=== PATIENT | female | born 1980 | race Caucasian/White ===

== ENCOUNTER 2017-09-04 03:15 | Emergency (ER) | payer OTHER ==
[2017-09-04 03:24] VITALS: BP 155/64; PULSE 100; O2SAT 98
[2017-09-04] MEDS ORDERED: Adacel Vial IM ONE ×2 (03:36→03:43)
[2017-09-04] MEDS ORDERED: BACIGUENT PACKET TP ONE (03:36)
[2017-09-04] MEDS ORDERED: KEFLEX 500 MG PO ONE (03:38)
[2017-09-04] MEDS ORDERED: XYLOCAINE 1% HCL 20 ML MDV IJ ONE (03:38)
[2017-09-04] MEDS ORDERED: BACIGUENT PACKET ONE (03:43)
[2017-09-04] MEDS ORDERED: KEFLEX 500 MG ONE (03:43)
[2017-09-04] MEDS ORDERED: XYLOCAINE 1% HCL 20 ML MDV ONE (03:43)
--- NOTE | 2017-09-04 03:45 | ERPHSYRPT ---
- History of Present Illness Time Seen by Provider: 09/04/17 03:27 Source: patient Exam Limitations: no limitations Patient Subjective Stated Complaint: fishing hook to left hand 5th digit Triage Nursing Assessment: fishing hook to left hand 5th digit Physician History: ABOUT 30 MINUTES AGO AT HOME PT GOT A FISH HOOK EMBEDDED IN THE DISTAL PHALAN[place] OF HER LEFT HAND; DENIES PRIOR INJURY TO THE LEFT SMALL FINGER; DENIES NUMBNESS OF THE LEFT SMALL FINGER. Allergies/Adverse Reactions: No Known Drug Allergies Allergy (Verified 01/17/16 20:57) Home Medications: Alprazolam [Xanax] 2 mg PO QIDPRN PRN 02/16/15 [History] Fluoxetine HCl [Prozac] 60 mg PO DAILY 02/16/15 [History] Hydrocodone Bit/Acetaminophen [Hydrocodon-Acetaminophn 10-325] 1 tab PO QIDPRN PRN 02/16/15 [History] Omeprazole 20 MG [Prilosec 20 mg] 20 mg PO DAILY 02/16/15 [History] Albuterol Sulfate [Proventil Hfa] 6.7 gm IH BID 01/17/16 [History] Hx Tetanus, Diphtheria Vaccination/Date Given: No (> 17 yrs) Hx Influenza Vaccination/Date Given: No Hx Pneumococcal Vaccination/Date Given: No Immunizations Up to Date: Yes - Review of Systems Musculoskeletal: Other (FISH HOOK EMBEDDED IN LEFT SMALL FINGER TONIGHT) - Past Medical History Pertinent Past Medical History: Yes Neurological History: No Pertinent History ENT History: No Pertinent History Cardiac History: No Pertinent History Respiratory History: Bronchitis Endocrine Medical History: No Pertinent History Musculoskeletal History: No Pertinent History GI Medical History: GERD History: No Pertinent History Psycho-Social History: Anxiety, Depression Female Reproductive Disorders: No Pertinent History Other Medical History: REMISSION W/ HODGKINS LYMPHOMA 2 YEARS AGO; HAS A PORT - Past Surgical History Past Surgical History: Yes Neuro Surgical History: No Pertinent History Cardiac: No Pertinent History Respiratory: No Pertinent History Gastrointestinal: Appendectomy Genitourinary: No Pertinent History Musculoskeletal: No Pertinent History Female Surgical History: Tubal Ligation Other Surgical History: PORT-A-CATH, skin biopsy, knee sx - Social History Smoking Status: Current every day smoker How long have you smoked: 15 years Exposure to second hand smoke: No Alcohol Use: Socially Drug Use: none Patient Lives Alone: No Significant Family History: no pertinent family hx - Female History Hx Last Menstrual Period: 07/22/2017 Hx Now: No - Nursing Vital Signs Nursing Vital Signs: Initial Vital Signs Temperature 97.8 F 09/04/17 03:18 Pulse Rate 100 H 09/04/17 03:18 Respiratory Rate 18 09/04/17 03:18 Blood Pressure 155/64 09/04/17 03:18 O2 Sat by Pulse Oximetry 98 09/04/17 03:18 Pain Scale Pain Intensity 8 - Physical Exam General Appearance: alert Shoulder Exam: normal ROM Elbow/Forearm Exam: normal ROM Wrist Exam: normal ROM Hand Exam: soft tissue tenderness (FISH HOOK EMBEDDED IN PAD OF LEFT SMALL FINGER) Neuro/Tendon Exam: normal sensation Mental Status Exam: alert, cooperative SpO2 Interpretation: normal SpO2: 98 Oxygen Delivery: Room Air - Course Nursing assessment & vital signs reviewed: Yes Ordered Tests: Active Orders 24 hr Category Date Time Status Wound Care STAT Care 09/04/17 03:36 Active Medication Summary Discontinued Medications Generic Name Dose Route Start Last Admin Trade Name Freq PRN Reason Stop Dose Admin Bacitracin 0.9 gm 09/04/17 03:36 09/04/17 03:58 Baciguent Packet TP 09/04/17 03:37 1 gm STAT ONE Administration Bacitracin Confirm 09/04/17 03:43 Baciguent Packet Administered 09/04/17 03:44 Dose 1 gm .ROUTE .STK-MED ONE Cephalexin HCl 500 mg 09/04/17 03:38 09/04/17 03:58 Keflex 500 Mg PO 09/04/17 03:39 500 mg STAT ONE Administration Cephalexin HCl Confirm 09/04/17 03:43 Keflex 500 Mg Administered 09/04/17 03:44 Dose 500 mg .ROUTE .STK-MED ONE Diphtheria/Tetanus/Acell Pertussis 0.5 ml 09/04/17 03:36 09/04/17 03:58 Adacel Vial IM 09/04/17 03:37 0.5 ml .ONCE ONE Administration Diphtheria/Tetanus/Acell Pertussis Confirm 09/04/17 03:43 Adacel Vial Administered 09/04/17 03:44 Dose 0.5 ml IM .STK-MED ONE Lidocaine HCl 5 ml 09/04/17 03:38 09/04/17 03:56 Xylocaine 1% Hcl 20 Ml Mdv IJ 09/04/17 03:39 5 ml STAT ONE Administration Lidocaine HCl Confirm 09/04/17 03:43 Xylocaine 1% Hcl 20 Ml Mdv Administered 09/04/17 03:44 Dose 1 ml .ROUTE .STK-MED ONE - Progress Progress Note: 09/04/17 04:07 FISH HOOK IN LEFT SMALL FINGER: 1% LIDOCAINE, ALCOHOL WIPE X2, FISH HOOK REMOVED WITH PLIERS AND A STERILE #18 GA NEEDLE. - Departure Time of Disposition: 04:11 Departure Disposition: Home Clinical Impression: FISH HOOK REMOVAL FROM LEFT SMALL FINGER Condition: Stable Critical Care Time: No Referrals: KAJAL SHANNON [Primary Care Provider] - Instructions: Removal of Foreign Body From Skin Additional Instructions: FOLLOW UP WITH PRIVATE DOCTOR TOMORROW. NEOSPORIN & BANDAGE DAILY TO LEFT SMALL FINGER WOUND FOR 7 DAYS. KEEP CLEAN & DRY.
== END 2017-09-04 04:24 | disposition home or self-care (01) ==
LOC: ED 03:15
DX: S61.237A Puncture wound without foreign body of left little finger without damage to nail, initial encounter (principal)
CPT/HCPCS: 90471; 90715; 96372; 99283; A9270-GY

== ENCOUNTER 2019-09-20 19:09 | Emergency (ER) | payer OTHER ==
[2019-09-20 20:27] LABS: Appearance CLEAR (CLEAR); Bilirubin NEGATIVE (NEGATIVE); Blood NEGATIVE Ery/ul (0-5); Epithelial Cells RARE /HPF (FEW); Glucose NEGATIVE (NEGATIVE); Ketones NEGATIVE (NEGATIVE); Leukocyte Esterase NEGATIVE (NEGATIVE); Mucus SLIGHT /HPF (NEGATIVE); Nitrite NEGATIVE (NEGATIVE); Protein,Urine Dip NEGATIVE (Negative); Specific Gravity 1.003 (1.005-1.025); Urobilinogen NEGATIVE mg/dL (0-1)
[2019-09-20 20:47] LABS: Absolute Neutrophil Ct (ANC) 4.87 (1.4-6.9); BASOPHIL % 0.5 % (0.0-0.4); Basophil (Absolute #) 0.05 (0-0.4); Eosinophil % 3.7 % (0.00-5.0); Eosinophil (Absolute #) 0.34 (0-0.5); Hematocrit 39.4 % (35-47); Hemoglobin 13.6 gm/dl (12.0-16.0); Lymphocyte (Absolute #) 2.99 (1.0-4.6); Lymphocytes % 32.4 % (24.0-44.0); Mean Cell Volume 93.8 fl (78-100); Mean Corpuscular Hemoglobin 32.4 pg (26-32); Mean Corpuscular Hgb Concent. 34.5 g/dl (32-36); Mean Platelet Volume 9.6 fl (6-9.5); Monocyte (Absolute #) 0.97 (0.0-1.3); Monocytes % 10.5 % (0.0-12.0); Neutrophil % 52.9 % (36.0-66.0); Platelet Count 353 K/mm3 (150-450); Red Cell Distribution Width 13.9 % (11.5-14.0); White Blood Count 9.2 K/mm3 (4.0-10.5)
[2019-09-20 21:25] LABS: ALBUMIN 4.3 g/dL (3.5-5.0); ANION GAP 12.8 MEQ/L (5-15); BILIRUBIN,TOTAL 0.5 mg/dL (0.2-1.3); Calcium 9.2 mg/dL (8.4-10.2); Creatinine 1 1.23 mg/dL (0.52-1.04); Potassium 3.5 mmol/L (3.5-5.1); TSH, 3RD Generation 1.09 mIU/L (0.47-4.68)
[2019-09-20 21:35] LABS: Barbiturate,Urine NEGATIVE (NEGATIVE); Benzodiazepine,Urine NEGATIVE (NEGATIVE); Cocaine,Urine NEGATIVE (NEGATIVE); Methadone,Urine NEGATIVE (NEGATIVE); Opiate,Urine NEGATIVE (NEGATIVE); PCP,Urine NEGATIVE (NEGATIVE); THC,Urine NEGATIVE (NEGATIVE)
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
[2019-09-20 22:19] LABS: Amphetamine,Urine POSITIVE (NEGATIVE)
[2019-09-21] MEDS ORDERED: DUONEB 0.5-3 MG/3 ml Neb IH ONE ×2 (06:31→06:55)
[2019-09-21 10:19] VITALS: O2SAT 100
[2019-09-21 11:27] VITALS: BP 124/82; PULSE 90
== END 2019-09-21 11:34 | disposition home or self-care (01) ==
LOC: ED 19:09
DX: F19.20 Other psychoactive substance dependence, uncomplicated (principal); F31.9 Bipolar disorder, unspecified; R44.3 Hallucinations, unspecified
CPT/HCPCS: 36415; 80053; 80307; 81001; 84443; 85025; 90791; 94640; 99284; G0480; Q3014; A9270-GY

== ENCOUNTER 2019-10-02 02:05 | Emergency (ER) | payer OTHER ==
--- NOTE | 2019-10-02 02:17 | ERPHSYRPT ---
- History of Present Illness Time Seen by Provider: 10/02/19 02:16 Historian: patient Physician History: Pt is here with right flank pain and not able to have a BM for 3 days. Pt notes that she did an enema and has been "shitting water." Pt didn't have diarrhea prior to taking the enema. Pt states that she thinks that she has something like a urinary tract infection. Pt did try an enema and Ibuprofen 400 mgs around 22:00. Timing/Duration: today Activities at Onset: none Quality: aching, sharpness Allergies/Adverse Reactions: No Known Drug Allergies Allergy (Verified 10/02/19 02:25) Hx Tetanus, Diphtheria Vaccination/Date Given: Yes (08/2017) Hx Influenza Vaccination/Date Given: No Hx Pneumococcal Vaccination/Date Given: No - Review of Systems Constitutional: Malaise Eyes: No Symptoms Ears, Nose, & Throat: No Symptoms Respiratory: No Symptoms Cardiac: No Symptoms Abdominal/Gastrointestinal: Abdominal Pain, Diarrhea, Constipation Genitourinary Symptoms: Flank Pain Musculoskeletal: Back Pain Skin: No Symptoms Neurological: No Symptoms Psychological: No Symptoms, Other (restless) Endocrine: No Symptoms Hematologic/Lymphatic: No Easy Bruising All Other Systems: Reviewed and Negative - Past Medical History Pertinent Past Medical History: Yes Neurological History: No Pertinent History ENT History: No Pertinent History Cardiac History: No Pertinent History Respiratory History: Bronchitis Endocrine Medical History: No Pertinent History Musculoskeletal History: No Pertinent History GI Medical History: GERD History: No Pertinent History Psycho-Social History: Anxiety, Bipolar, Depression Female Reproductive Disorders: No Pertinent History Other Medical History: REMISSION W/ HODGKINS LYMPHOMA - Past Surgical History Past Surgical History: Yes Neuro Surgical History: No Pertinent History Cardiac: No Pertinent History Respiratory: No Pertinent History Gastrointestinal: Appendectomy Genitourinary: No Pertinent History Musculoskeletal: No Pertinent History Female Surgical History: Tubal Ligation Other Surgical History: PORT-A-CATH, skin biopsy, knee sx - Social History Smoking Status: Current every day smoker How long have you smoked: 20 years Exposure to second hand smoke: Yes Alcohol Use: Socially Drug Use: methamphetamines Patient Lives Alone: No Significant Family History: no pertinent family hx - Nursing Vital Signs Nursing Vital Signs: Initial Vital Signs Temperature 98.7 F 10/02/19 02:12 Pulse Rate 95 H 10/02/19 02:12 Respiratory Rate 10/02/19 02:12 Blood Pressure 102/76 10/02/19 02:12 O2 Sat by Pulse Oximetry 97 10/02/19 02:12 Pain Scale Pain Intensity 10 - Physical Exam General Appearance: moderate distress, anxiety, other (moderate pain) Eye Exam: PERRL/EOMI, No scleral icterus, No photophobia, No EOM palsy/ anisocoria Ears, Nose, Throat Exam: normal ENT inspection, No dry mucous membranes Neck Exam: normal inspection, non-tender, supple Respiratory Exam: normal breath sounds, lungs clear, airway intact, No chest tenderness Cardiovascular Exam: regular rate/rhythm, normal heart sounds, No murmur Gastrointestinal/Abdomen Exam: soft, normal bowel sounds, tenderness, guarding, No distention, No mass Pelvic Exam: not done Rectal Exam: not done Back Exam: normal inspection Extremity Exam: normal inspection, normal range of motion Neurologic Exam: alert, oriented x 3, cooperative, ambulance paramedic II-XII nml as tested, nml cerebellar function, No motor deficits, No sensory deficit, No motor weakness, No facial droop Skin Exam: normal color, warm, dry, No rash SpO2 Interpretation: normal SpO2: 97 O2 Delivery: Room Air Ordered Tests: Active Orders 24 hr Category Date Time Status IV Insertion STAT Care 10/02/19 03:25 Active ABDOMEN AND PELVIS W/0 CONTRAS [CT] Stat Exams 10/02/19 02:25 Taken AMYLASE Stat Lab 10/02/19 02:41 Completed CBC W DIFF Stat Lab 10/02/19 02:41 Completed CMP Stat Lab 10/02/19 02:41 Completed CULTURE,URINE Stat Lab 10/02/19 02:41 Received HCG,QUALITATIVE URINE Stat Lab 10/02/19 02:41 Completed LIPASE Stat Lab 10/02/19 02:41 Completed Lactic Acid Stat Lab 10/02/19 02:35 Completed UA W/RFX UR CULTURE Stat Lab 10/02/19 02:41 Completed Urine Triage Profile Stat Lab 10/02/19 03:00 Completed Medication Summary Discontinued Medications Generic Name Dose Route Start Last Admin Trade Name Freq PRN Reason Stop Dose Admin Ceftriaxone Sodium/Dextrose 1 g in 50 mls @ 100 mls/hr 10/02/19 03:41 03:50 Rocephin 1 Gm-D5w 50 Ml Bag IV 10/02/19 04:10 100 mls/hr STAT STA 100 mls/hr Administration Ceftriaxone Sodium/Dextrose Confirm 10/02/19 03:47 Rocephin 1 Gm-D5w 50 Ml Bag Administered 10/02/19 03:48 Dose 1 g in 50 mls @ ud IV .STK-MED ONE Ketorolac Tromethamine 30 mg 10/02/19 03:22 10/02/19 03:33 Toradol 30 Mg Injection IV 10/02/19 03:23 30 mg STAT ONE Administration Ketorolac Tromethamine Confirm 10/02/19 03:26 Toradol 30 Mg Injection Administered 10/02/19 03:27 Dose 30 mg .ROUTE .STK-MED ONE Lab/Rad Data: Laboratory Result Diagrams 10/02/19 02:41 10/02/19 02:41 Laboratory Results 10/02/19 10/02/19 10/02/19 Range/Units 03:00 02:41 02:41 WBC (4.0-10.5) K/mm3 RBC (4.1-5.4) M/mm3 Hgb (12.0-16.0) gm/dl Hct (35-47) % MCV (78-100) fl MCH (26-32) pg MCHC (32-36) g/dl RDW (11.5-14.0) % Plt Count (150-450) K/mm3 MPV (6-9.5) fl Gran % (36.0-66.0) % Eos # (Auto) (0-0.5) Absolute Lymphs (auto) (1.0-4.6) Absolute Monos (auto) (0.0-1.3) Lymphocytes % (24.0-44.0) % Monocytes % (0.0-12.0) % Eosinophils % (0.00-5.0) % Basophils % (0.0-0.4) % Absolute Granulocytes (1.4-6.9) Basophils # (0-0.4) Sodium (137-145) mmol/L Potassium (3.5-5.1) mmol/L Chloride (98-107) mmol/L Carbon Dioxide (22-30) mmol/L Anion Gap (5-15) MEQ/L BUN (7-17) mg/dL Creatinine (0.52-1.04) mg/dL Estimated GFR ML/MIN Glucose (74-106) mg/dL Lactic Acid (0.4-2.0) Calcium (8.4-10.2) mg/dL Total Bilirubin (0.2-1.3) mg/dL AST (14-36) U/L ALT (0-35) U/L Alkaline Phosphatase (38-126) U/L Serum Total Protein (6.3-8.2) g/dL Albumin (3.5-5.0) g/dL Amylase (30-110) U/L Lipase (23-300) U/L Urine Color YELLOW (YELLOW) Urine Appearance TURBID (CLEAR) Urine pH 6.0 (5-6) Ur Specific [place] 1.013 (1.005-1.025) Urine Protein 100 (Negative) Urine Ketones NEGATIVE (NEGATIVE) Urine Blood SMALL (0-5) [place]/ul Urine Nitrite POSITIVE (NEGATIVE) Urine Bilirubin NEGATIVE (NEGATIVE) Urine Urobilinogen NEGATIVE (0-1) mg/dL Ur Leukocyte Esterase LARGE (NEGATIVE) Urine WBC (Auto) >100 (0-5) /HPF Urine RBC (Auto) 26-50 (0-2) /HPF U Epithel Cells (Auto) RARE (FEW) /HPF Urine Bacteria (Auto) FEW (NEGATIVE) /HPF U Non-Squamous Epi Cells RARE (FEW) /HPF Urine Mucus (Auto) SLIGHT (NEGATIVE) /HPF Urine Culture Reflexed YES (NO) Urine Glucose NEGATIVE (NEGATIVE) mg/dL Urine HCG, Qual NEGATIVE (Negative) Urine Opiates Level NEGATIVE (NEGATIVE) Ur Methadone NEGATIVE (NEGATIVE) Urine Barbiturates NEGATIVE (NEGATIVE) Ur Phencyclidine (PCP) NEGATIVE (NEGATIVE) Urine Amphetamine POSITIVE (NEGATIVE) U Benzodiazepine Level POSITIVE (NEGATIVE) Urine Cocaine NEGATIVE (NEGATIVE) Urine Marijuana (THC) POSITIVE (NEGATIVE) 10/02/19 10/02/19 10/02/19 Range/Units 02:41 02:41 02:35 WBC 18.5 H (4.0-10.5) K/mm3 RBC 4.37 (4.1-5.4) M/mm3 Hgb 14.1 (12.0-16.0) gm/dl Hct 41.0 (35-47) % MCV 93.8 (78-100) fl MCH 32.3 H (26-32) pg MCHC 34.4 (32-36) g/dl RDW 13.8 (11.5-14.0) % Plt Count 368 (150-450) K/mm3 MPV 9.7 H (6-9.5) fl Gran % 81.9 H (36.0-66.0) % Eos # (Auto) 0.13 (0-0.5) Absolute Lymphs (auto) 1.72 (1.0-4.6) Absolute Monos (auto) 1.49 H (0.0-1.3) Lymphocytes % 9.3 L (24.0-44.0) % Monocytes % 8.0 (0.0-12.0) % Eosinophils % 0.7 (0.00-5.0) % Basophils % 0.1 (0.0-0.4) % Absolute Granulocytes 15.16 H (1.4-6.9) Basophils # 0.02 (0-0.4) Sodium 136 L (137-145) mmol/L Potassium 4.0 (3.5-5.1) mmol/L Chloride 96 L (98-107) mmol/L Carbon Dioxide 31 H (22-30) mmol/L Anion Gap 12.8 (5-15) MEQ/L BUN 10 (7-17) mg/dL Creatinine 0.88 (0.52-1.04) mg/dL Estimated GFR > 60.0 ML/MIN Glucose 115 H (74-106) mg/dL Lactic Acid 0.9 (0.4-2.0) Calcium 9.5 (8.4-10.2) mg/dL Total Bilirubin 1.50 H (0.2-1.3) mg/dL AST 48 H (14-36) U/L ALT 91 H (0-35) U/L Alkaline Phosphatase 65 (38-126) U/L Serum Total Protein 8.3 H (6.3-8.2) g/dL Albumin 4.5 (3.5-5.0) g/dL Amylase 53 (30-110) U/L Lipase 37 (23-300) U/L Urine Color (YELLOW) Urine Appearance (CLEAR) Urine pH (5-6) Ur Specific [place] (1.005-1.025) Urine Protein (Negative) Urine Ketones (NEGATIVE) Urine Blood (0-5) [place]/ul Urine Nitrite (NEGATIVE) Urine Bilirubin (NEGATIVE) Urine Urobilinogen (0-1) mg/dL Ur Leukocyte Esterase (NEGATIVE) Urine WBC (Auto) (0-5) /HPF Urine RBC (Auto) (0-2) /HPF U Epithel Cells (Auto) (FEW) /HPF Urine Bacteria (Auto) (NEGATIVE) /HPF U Non-Squamous Epi Cells (FEW) /HPF Urine Mucus (Auto) (NEGATIVE) /HPF Urine Culture Reflexed (NO) Urine Glucose (NEGATIVE) mg/dL Urine HCG, Qual (Negative) Urine Opiates Level (NEGATIVE) Ur Methadone (NEGATIVE) Urine Barbiturates (NEGATIVE) Ur Phencyclidine (PCP) (NEGATIVE) Urine Amphetamine (NEGATIVE) U Benzodiazepine Level (NEGATIVE) Urine Cocaine (NEGATIVE) Urine Marijuana (THC) (NEGATIVE) - Progress Progress: improved (PAIN LESS AFTER TORADOL) Progress Note: 10/02/19 04:17 Pt notes that her pain is improved after she had some toradol. Pt given Rocephin due to the UTI and elevated WBC's.CT aND OTHR LABS REVIWED AND UNREMARKABLE. WILL DISCHARGE PT ON CIPRO AND HAVE HER F/U AN OUTPT AT THE COMPLETION OF HER ANTIBIOTIC. - Departure Departure Disposition: Home Clinical Impression: Urinary tract infection Condition: Stable Critical Care Time: No Referrals: DOCTOR,NO FAMILY [NON-STAFF PHY W/O PRIVILEGES] - Additional Instructions: Drink plenty of non-caffienated beverages. Wipe front to back after toileting. Be sure to get up and urinate after intercourse, especially any oral intercourse. Avoid bubble baths. YOu will need to take your antibiotic and then have your urine rechecked at the completion of your antibiotic to be susre that the infection has cleared. Prescriptions: Ciprofloxacin [Cipro 500 MG] 500 mg PO BID #14 tablet
[2019-10-02 02:25] VITALS: O2SAT 97
[2019-10-02 02:50] LABS: Appearance TURBID (CLEAR); Bacteria FEW /HPF (NEGATIVE); Bilirubin NEGATIVE (NEGATIVE); Blood SMALL Ery/ul (0-5); Epithelial Cells RARE /HPF (FEW); Glucose NEGATIVE (NEGATIVE); Ketones NEGATIVE (NEGATIVE); Leukocyte Esterase LARGE (NEGATIVE); Mucus SLIGHT /HPF (NEGATIVE); Nitrite POSITIVE (NEGATIVE); Non-Squamous Epithelial Cells RARE /HPF (FEW); Protein,Urine Dip 100 (Negative); RBC 26-50 /HPF (0-2); Specific Gravity 1.013 (1.005-1.025); Urobilinogen NEGATIVE mg/dL (0-1); WBC >100 /HPF (0-5)
[2019-10-02 02:55] LABS: Absolute Neutrophil Ct (ANC) 15.16 (1.4-6.9); BASOPHIL % 0.1 % (0.0-0.4); Basophil (Absolute #) 0.02 (0-0.4); Eosinophil % 0.7 % (0.00-5.0); Eosinophil (Absolute #) 0.13 (0-0.5); Hemoglobin 14.1 gm/dl (12.0-16.0); Lymphocyte (Absolute #) 1.72 (1.0-4.6); Lymphocytes % 9.3 % (24.0-44.0); Mean Cell Volume 93.8 fl (78-100); Mean Corpuscular Hemoglobin 32.3 pg (26-32); Mean Corpuscular Hgb Concent. 34.4 g/dl (32-36); Mean Platelet Volume 9.7 fl (6-9.5); Monocyte (Absolute #) 1.49 (0.0-1.3); Neutrophil % 81.9 % (36.0-66.0); Platelet Count 368 K/mm3 (150-450); Red Blood Count 4.37 M/mm3 (4.1-5.4); Red Cell Distribution Width 13.8 % (11.5-14.0); White Blood Count 18.5 K/mm3 (4.0-10.5)
[2019-10-02 02:56] LABS: ALBUMIN 4.5 g/dL (3.5-5.0); ALKALINE PHOSPHATASE 65 U/L (38-126); AMYLASE 53 U/L (30-110); ANION GAP 12.8 MEQ/L (5-15); BLOOD UREA NITROGEN 10 mg/dL (7-17); CHLORIDE 96 mmol/L (98-107); Calcium 9.5 mg/dL (8.4-10.2); Carbon Dioxide 31 mmol/L (22-30); Creatinine 1 0.88 mg/dL (0.52-1.04); Glucose 115 mg/dL (74-106); LIPASE 37 U/L (23-300); SGOT/AST 48 U/L (14-36); SGPT/ALT 91 U/L (0-35); SODIUM 136 mmol/L (137-145); Total Protein 8.3 g/dL (6.3-8.2)
[2019-10-02] MEDS ORDERED: TORAdol 30 mg Injection IV ONE (03:22)
[2019-10-02] MEDS ORDERED: TORAdol 30 mg Injection ONE (03:26)
[2019-10-02] MEDS ORDERED: ROCEPHIN 1 Gm-D5w 50 ml Bag** 1 G/50 ML IVPB IV STA (03:41)
[2019-10-02 03:47] LABS: Barbiturate,Urine NEGATIVE (NEGATIVE); Benzodiazepine,Urine POSITIVE (NEGATIVE); Cocaine,Urine NEGATIVE (NEGATIVE); Methadone,Urine NEGATIVE (NEGATIVE); Opiate,Urine NEGATIVE (NEGATIVE); PCP,Urine NEGATIVE (NEGATIVE); THC,Urine POSITIVE (NEGATIVE)
[2019-10-02] MEDS ORDERED: ROCEPHIN 1 Gm-D5w 50 ml Bag** 1 G/50 ML IVPB IV ONE (03:47)
[2019-10-02 04:04] LABS: Amphetamine,Urine POSITIVE (NEGATIVE)
[2019-10-02 04:20] VITALS: BP 109/69; PULSE 97
--- NOTE | 2019-10-02 09:16 | XRAY ---
Indication: Right flank pain. Constipation and difficulty urinating. Multiple contiguous axial images obtained through the abdomen and pelvis without contrast using renal stone protocol. Comparison: None Lung bases are clear. Heart is not enlarged. No renal calculus or evidence for obstructive uropathy in either system. Noncontrasted stomach and bowel loops appear nonobstructed. Appendix not clearly identified. The colon demonstrates mild fluid distention throughout including rectum favoring diarrhea. No free fluid/air. 2.6 cm right ovary cyst. A few hepatic calcified granulomas. Remaining liver, gallbladder, pancreas, spleen, adrenal glands, kidneys, ureters, bladder, uterus, and aorta appear unremarkable for noncontrast exam. Osseous structures intact remotes appearing L2 wedging deformity. Impression: 1. Negative renal calculus or evidence for obstructive uropathy. 2. Mild fluid distended colon favoring diarrhea. 3. 2.6 cm mid right ovary cyst, remote L2 wedging deformity, and evidence for old granulomatous disease. 4. Remaining CT abdomen/pelvis without contrast exam is negative. Comment: Preliminary interpretation was made by [facility]. No critical discrepancy. CTDI 5.66
== END 2019-10-02 04:31 | disposition home or self-care (01) ==
LOC: ED 02:05
DX: N39.0 Urinary tract infection, site not specified (principal); R10.9 Unspecified abdominal pain; R53.81 Other malaise; R19.7 Diarrhea, unspecified; K59.00 Constipation, unspecified; M54.9 Dorsalgia, unspecified
CPT/HCPCS: 36000; 36415; 74176; 80053; 80307; 81001; 82150; 83605; 83690; 84703; 85025; 87077; 87086; 87186; 96365; 96374; 99284; J0696; J1885

== ENCOUNTER 2025-07-02 17:45 | Observation (INO) | payer OTHER ==
[2025-07-02] MEDS ORDERED: BABY ASPIRIN 81 MG CHEW ONE (18:55)
[2025-07-02] MEDS ORDERED: Zofran 4 MG/2 ML VIAL ONE (18:55)
[2025-07-02] MEDS ORDERED: TORAdol 30 mg Injection ONE (18:56)
[2025-07-02 18:59] LABS: Hematocrit 40.8 % (34.1-44.9); Hemoglobin 14.7 g/dL (11.2-15.7); Mean Corpuscular Hemoglobin 32.2 pg (25.6-32.2); Mean Corpuscular Hgb Concent. 36.0 g/dL (32.2-35.5); Platelet Count 424 x10^3/uL (182-369); Red Blood Count 4.56 x10^6/uL (3.93-5.22); White Blood Count 12.7 x10^3/uL (3.98-10.04)
[2025-07-02] MEDS: TORAdol 30 mg Injection IV ONE (18:59)
[2025-07-02 19:00] LABS: BASOPHIL % 0.5 % (0.1-1.2); Basophil (Absolute #) 0.07 x10^3/uL (0.01-0.08); Eosinophil (Absolute #) 0.26 x10^3/uL (0.04-0.36); IMMATURE GRAN # 0.05 x10^3u/L (0.001-0.031); IMMATURE GRAN % 0.4 % (0.001-0.429); Lymphocyte (Absolute #) 2.71 x10^3/uL (1.18-3.74); Monocyte (Absolute #) 1.07 x10^3/uL (0.24-0.86); NUCLEATED RBC # 0.00 x10^3u/L (0.00-0.012); NUCLEATED RBC % 0.0 % (0.00-0.2)
[2025-07-02] MEDS: Zofran 4 MG/2 ML VIAL IV ONE (19:00)
[2025-07-02] MEDS: BABY ASPIRIN 81 MG CHEW PO ONE (19:01)
--- NOTE | 2025-07-02 19:01 | ERPHSYRPT ---
- History of Present Illness Source: patient Exam Limitations: no limitations Patient Subjective Stated Complaint: pt c/o of upper medial epigastric pain w/N&V Triage Nursing Assessment: Pt brought self to the ER, hypertensive, rates pain as 7/10, pulses normal, skin n/w/d, N&V, "feels like something is stuck", still has gallbladder, no hx of hiatal hernia, no difficulty breathing, doesn't appear to be in any distress Hx Tetanus, Diphtheria Vaccination/Date Given: Yes (08/2017) Hx Influenza Vaccination/Date Given: No Hx Pneumococcal Vaccination/Date Given: No <CYRIL ADAMSON - Last Filed: 07/02/25 19:03> <EVELINA KEMP - Last Filed: 07/02/25 22:38> - History of Present Illness Time Seen by Provider: 07/02/25 18:37 Physician History: Patient is here with 7 out of 10 midepigastric pain that radiates into her chest. No falls or trauma. Patient states that has been going on all day. Patient states that she still has her gallbladder. No cardiac history. Patient does smoke. Patient states she has also had diarrhea over the same timeframe. She otherwise has been in her normal state of health. She has no fever here. Patient is taking PO well. Same number of urinations and defecations. The patient has no signs of altered mental status, nuchal rigidity, signs of meningitis. The patient is up-to-date on all vaccinations. (CYRIL ADAMSON) Allergies/Adverse Reactions: No Known Drug Allergies Allergy (Verified 07/02/25 18:07) Home Medications: Albuterol Sulfate [Albuterol Sulfate Hfa] 2 inh PO Q6HPRN PRN 07/02/25 [History] Travel Risk - International Travel Have you traveled outside of the country in past 3 weeks: No - Emerging Infectious Disease Are you exhibiting symptoms associated with any current EIDs: Yes Symptoms: Abdominal Pain, Vomitting <CYRIL ADAMSON - Last Filed: 07/02/25 19:03> - Past Medical History Pertinent Past Medical History: Yes Neurological History: No Pertinent History ENT History: No Pertinent History Cardiac History: No Pertinent History Respiratory History: Bronchitis Endocrine Medical History: No Pertinent History Musculoskeletal History: Arthritis GI Medical History: GERD History: No Pertinent History Psycho-Social History: Anxiety, Bipolar, Depression Female Reproductive Disorders: No Pertinent History Other Medical History: Hodgkins Lymphoma 5 years ago - Past Surgical History Past Surgical History: Yes Neuro Surgical History: No Pertinent History Cardiac: No Pertinent History Respiratory: No Pertinent History Gastrointestinal: Appendectomy Genitourinary: No Pertinent History Musculoskeletal: No Pertinent History Female Surgical History: Tubal Ligation Other Surgical History: PORT-A-CATH, skin biopsy, knee sx Significant Family History: no pertinent family hx - Female History Hx Last Menstrual Period: UNKNOWN Hx Now: No (tubal) - Social History Smoking Status: Current every day smoker How long have you smoked: 20 years Exposure to second hand smoke: Yes Drug Use: methamphetamines - Social Determinants of Health Will the patient participate in the screening: Yes Do you worry about a steady place to live?: No Do you have any problems with any of the following?: No known problems In the past 12 months,have you had to go without utilities?: No Transportation Issues: No Has anyone in your support network made you feel unsafe?: No Have you or anyone in your house had to go w/o enough food: No <CYRIL ADAMSON - Last Filed: 07/02/25 19:03> - Physical Exam SpO2: 96 <CYRIL ADAMSON - Last Filed: 07/02/25 19:03> - Nursing Vital Signs Nursing Vital Signs: Initial Vital Signs Temperature 97.5 F 07/02/25 18:00 Pulse Rate 90 07/02/25 18:00 Respiratory Rate 15 07/02/25 18:00 Blood Pressure 165/89 07/02/25 18:00 O2 Sat by Pulse Oximetry 98 07/02/25 18:00 Pain Scale Pain Intensity 0 - Physical Exam Comments: 07/02/25 19:00 Review of Systems Constitutional: Negative for fever. HENT: Negative for congestion. Respiratory: Negative for shortness of breath. Cardiovascular: chest pain. Gastrointestinal: abdominal pain. Genitourinary: Negative for dysuria. Musculoskeletal: Negative for back pain. Skin: Negative for rash. Neurological: Negative for headaches. Psychiatric/Behavioral: Negative for behavioral problems. All other systems reviewed and are negative. Physical Exam Vitals signs and nursing note reviewed. Constitutional: Appearance: Patient is well-developed. HENT: Head: Normocephalic and atraumatic. Eyes: Conjunctiva/sclera: Conjunctivae normal. Neck: Musculoskeletal: Normal range of motion. Trachea: No tracheal deviation. Cardiovascular: Rate and Rhythm: Normal rate. Heart sounds normal. Pulmonary: Effort: Pulmonary effort is normal. No respiratory distress. And expiratory wheezes on exam Abdominal: Palpations: Abdomen is soft. Midepigastric tenderness mild. Does radiate into her midsternal chest on exam. Musculoskeletal: General: No deformity. Skin: General: Skin is warm and dry. Neurological/ Psychiatric: Mental Status: Mental status, behavior, interaction with environment is appropriate for patient's age and condition (CYRIL ADAMSON) - Course Nursing assessment & vital signs reviewed: Yes <CYRIL ADAMSON - Last Filed: 07/02/25 19:03> - Course EKG Interpreted by Me: RATE (73), Sinus Rhythm, NORMAL AXIS, NORMAL INTERVALS, NORMAL QRS - CT Exams Chest CT Interpretation: Tele-radiologist Report (New small hiatal hernia otherwise normal CT PE exam) Abdomen/Pelvis CT Interpretation: Tele-radiologist Report (Normal CT abdomen pelvis) <EVELINA KEMP - Last Filed: 07/02/25 22:38> Ordered Tests: Active Orders 24 hr Category Date Time Status Independent Film Maker STAT Care 07/02/25 18:44 Active EKG-ER Only STAT Care 07/02/25 18:42 Active IV Insertion STAT Care 07/02/25 18:42 Active ABDOMEN AND PELVIS W CONTRAST [CT] Stat Exams 07/02/25 18:45 Taken CHEST WITH CONTRAST [CT] Stat Exams 07/02/25 18:44 Taken CBC W DIFF Stat Lab 07/02/25 18:55 Completed CK-Creatinine Phosphokinase Stat Lab 07/02/25 18:55 Completed CMP Stat Lab 07/02/25 18:55 Completed LIPASE Stat Lab 07/02/25 18:55 Completed Lactic Acid Stat Lab 07/02/25 18:44 Ordered NT PRO BNPII Stat Lab 07/02/25 18:55 Completed PROTIME WITH INR Stat Lab 07/02/25 18:55 Completed PTT Stat Lab 07/02/25 18:55 Completed TROPONIN Q4H Lab 07/02/25 18:55 Completed TROPONIN Q4H Lab 07/02/25 21:20 Completed TROPONIN Q4H Lab 07/03/25 02:45 Ordered UA W/RFX UR CULTURE Stat Lab 07/02/25 19:47 Completed Respiratory Therapy Assessment DAILY RT 07/02/25 19:34 Active Transfer Order Routine Transfer 07/02/25 Ordered Medication Summary Discontinued Medications Generic Name Dose Route Start Last Admin Trade Name Edward PRN Reason Stop Dose Admin Al Hydrox/Mg Hydrox/Simethicone Confirm 07/02/25 22:32 Mag Hydrox/Al Hydrox/Simeth 30 Ml Udcup Administered 07/02/25 22:33 Dose 30 ml .ROUTE .STK-MED ONE Albuterol Sulfate 2.5 mg 07/02/25 18:45 07/02/25 19:32 Albuterol Sulfate 2.5 Mg/3 Ml Neb IH 07/02/25 18:46 2.5 mg STAT ONE Administration Albuterol Sulfate Confirm 07/02/25 19:13 Albuterol Sulfate 2.5 Mg/3 Ml Neb Administered 07/02/25 19:14 Dose 2.5 mg IH .STK-MED ONE Aspirin 324 mg 07/02/25 18:42 07/02/25 19:01 Aspirin 81 Mg Tab.Chew PO 07/02/25 18:43 324 mg STAT ONE Administration Aspirin Confirm 07/02/25 18:55 Aspirin 81 Mg Tab.Chew Administered 07/02/25 18:56 Dose 324 mg .ROUTE .STK-MED ONE Ketorolac Tromethamine 30 mg 07/02/25 18:44 07/02/25 18:59 Ketorolac Tromethamine 30 Mg/Ml Inj IV 07/02/25 18:45 30 mg STAT ONE Administration Ketorolac Tromethamine Confirm 07/02/25 18:56 Ketorolac Tromethamine 30 Mg/Ml Inj Administered 07/02/25 18:57 Dose 30 mg .ROUTE .STK-MED ONE Lidocaine HCl Confirm 07/02/25 22:31 Lidocaine Hcl 2% Viscous 15 Ml Udcup Administered 07/02/25 22:32 Dose 15 ml .ROUTE .STK-MED ONE Magnesium Hydroxide 45 ml 07/02/25 22:29 07/02/25 22:32 Mag Hydrx/Alum Hyd/Simeth/Lido 45 Ml Bottle PO 07/02/25 22:30 45 ml STAT ONE Administration Magnesium Hydroxide 45 ml 07/02/25 22:29 Mag Hydrx/Alum Hyd/Simeth/Lido 45 Ml Bottle PO 07/02/25 22:30 STAT ONE Nitroglycerin 1 gm 07/02/25 22:28 07/02/25 22:32 Nitroglycerin 1 Gm Packet TOP 07/02/25 22:29 1 gm STAT ONE Administration Nitroglycerin Confirm 07/02/25 22:31 Nitroglycerin 1 Gm Packet Administered 07/02/25 22:32 Dose 1 gm .ROUTE .STK-MED ONE Ondansetron HCl 4 mg 07/02/25 18:44 07/02/25 19:00 Ondansetron Hcl 4 Mg/2 Ml Vial IV 07/02/25 18:45 4 mg STAT ONE Administration Ondansetron HCl Confirm 07/02/25 18:55 Ondansetron Hcl 4 Mg/2 Ml Vial Administered 07/02/25 18:56 Dose 4 mg .ROUTE .STK-MED ONE Lab/Rad Data: Laboratory Result Diagrams 07/02/25 18:55 07/02/25 18:55 Laboratory Results 07/02/25 07/02/25 07/02/25 Range/Units 21:20 19:47 18:55 WBC (3.98-10.04) x10^3/uL RBC (3.93-5.22) x10^6/uL Hgb (11.2-15.7) g/dL Hct (34.1-44.9) % MCV (79.4-94.8) fL MCH (25.6-32.2) pg MCHC (32.2-35.5) g/dL RDW (11.7-14.4) % Plt Count (182-369) x10^3/uL MPV (9.4-12.3) fL Gran % (34.0-71.1) % Immature Gran % (Auto) (0.001-0.429) % Nucleat RBC Rel Count (0.00-0.2) % Eos # (Auto) (0.04-0.36) x10^3/uL Immature Gran # (Auto) (0.001-0.031) x10^3u/L Absolute Lymphs (auto) (1.18-3.74) x10^3/uL Absolute Monos (auto) (0.24-0.86) x10^3/uL Absolute Nucleated RBC (0.00-0.012) x10^3u/L Lymphocytes % (19.3-51.7) % Monocytes % (4.7-12.5) % Eosinophils % (0.7-5.8) % Basophils % (0.1-1.2) % Absolute Granulocytes (1.56-6.13) x10^3/uL Basophils # (0.01-0.08) x10^3/uL PT (9.4-12.5) SECONDS INR (0.8-3.0) APTT (25.1-36.5) SECONDS Sodium (135-145) mmol/L Potassium (3.5-5.1) mmol/L Chloride (98-107) mmol/L Carbon Dioxide (22-30) mmol/L Anion Gap (5-15) MEQ/L BUN (7-17) mg/dL Creatinine (0.52-1.04) mg/dL Estimated GFR ML/MIN Glucose (74-106) mg/dL Calcium (8.4-10.2) mg/dL Total Bilirubin (0.2-1.3) mg/dL AST (14-36) U/L ALT (0-35) U/L Alkaline Phosphatase (38-126) U/L Creatine Kinase (30-135) U/L Troponin I < 0.012 < 0.012 (0.000-0.033) ng/mL NT-Pro-B Natriuret Pep < 20.0 (<300) pg/mL Serum Total Protein (6.3-8.2) g/dL Albumin (3.5-5.0) g/dL Lipase (23-300) U/L Urine Color Yellow (Yellow) Urine Appearance Clear (Clear) Urine pH 8.5 A (4.6-8.0) Ur Specific [place] >=1.030 A (1.005-1.030) Urine Protein Trace A (Negative) Urine Glucose (UA) Negative (Negative) mg/dL Urine Ketones Negative (Negative) Urine Blood Negative (Negative) Urine Nitrite Negative (Negative) Urine Bilirubin Negative (Negative) Urine Urobilinogen 1.0 A (0.2) mg/dL Ur Leukocyte Esterase Negative (Negative) U Hyaline Cast (Auto) NONE SEEN (0-2) /LPF Urine Microscopic RBC 0-2 (0-5) /HPF Urine Microscopic WBC 0-2 (0-5) /HPF Ur Epithelial Cells Rare (None Seen) /HPF Urine Bacteria None Seen (None Seen) /HPF Urine Culture Reflexed NO (NO) 07/02/25 07/02/25 07/02/25 Range/Units 18:55 18:55 18:55 WBC 12.7 H (3.98-10.04) x10^3/uL RBC 4.56 (3.93-5.22) x10^6/uL Hgb 14.7 (11.2-15.7) g/dL Hct 40.8 (34.1-44.9) % MCV 89.5 (79.4-94.8) fL MCH 32.2 (25.6-32.2) pg MCHC 36.0 H (32.2-35.5) g/dL RDW 12.9 (11.7-14.4) % Plt Count 424 H (182-369) x10^3/uL MPV 9.1 L (9.4-12.3) fL Gran % 67.4 (34.0-71.1) % Immature Gran % (Auto) 0.4 (0.001-0.429) % Nucleat RBC Rel Count 0.0 (0.00-0.2) % Eos # (Auto) 0.26 (0.04-0.36) x10^3/uL Immature Gran # (Auto) 0.05 H (0.001-0.031) x10^3u/L Absolute Lymphs (auto) 2.71 (1.18-3.74) x10^3/uL Absolute Monos (auto) 1.07 H (0.24-0.86) x10^3/uL Absolute Nucleated RBC 0.00 (0.00-0.012) x10^3u/L Lymphocytes % 21.3 (19.3-51.7) % Monocytes % 8.4 (4.7-12.5) % Eosinophils % 2.0 (0.7-5.8) % Basophils % 0.5 (0.1-1.2) % Absolute Granulocytes 8.57 H (1.56-6.13) x10^3/uL Basophils # 0.07 (0.01-0.08) x10^3/uL PT 10.1 (9.4-12.5) SECONDS INR 0.92 (0.8-3.0) APTT 24.6 L (25.1-36.5) SECONDS Sodium 134 L (135-145) mmol/L Potassium 3.4 L (3.5-5.1) mmol/L Chloride 98 (98-107) mmol/L Carbon Dioxide 28 (22-30) mmol/L Anion Gap 11.6 (5-15) MEQ/L BUN 16 (7-17) mg/dL Creatinine 0.64 (0.52-1.04) mg/dL Estimated GFR 111.7 ML/MIN Glucose 103 (74-106) mg/dL Calcium 9.7 (8.4-10.2) mg/dL Total Bilirubin 0.80 (0.2-1.3) mg/dL AST 26 (14-36) U/L ALT 27 (0-35) U/L Alkaline Phosphatase 67 (38-126) U/L Creatine Kinase 88 (30-135) U/L Troponin I (0.000-0.033) ng/mL NT-Pro-B Natriuret Pep (<300) pg/mL Serum Total Protein 7.6 (6.3-8.2) g/dL Albumin 4.6 (3.5-5.0) g/dL Lipase 73 (23-300) U/L Urine Color (Yellow) Urine Appearance (Clear) Urine pH (4.6-8.0) Ur Specific [place] (1.005-1.030) Urine Protein (Negative) Urine Glucose (UA) (Negative) mg/dL Urine Ketones (Negative) Urine Blood (Negative) Urine Nitrite (Negative) Urine Bilirubin (Negative) Urine Urobilinogen (0.2) mg/dL Ur Leukocyte Esterase (Negative) U Hyaline Cast (Auto) (0-2) /LPF Urine Microscopic RBC (0-5) /HPF Urine Microscopic WBC (0-5) /HPF Ur Epithelial Cells (None Seen) /HPF Urine Bacteria (None Seen) /HPF Urine Culture Reflexed (NO) - Progress Progress: improved Counseled pt/family regarding: lab results, diagnosis, need for follow-up, rad results <CYRIL ADAMSON - Last Filed: 07/02/25 19:03> <EVELINA KEMP - Last Filed: 07/02/25 22:38> - Progress Progress Note: 07/02/25 19:03 Differential diagnosis includes kidney stone, compression fracture, infection, UTI, triple AAA. STEMI, NSTEMI, - insert IV for symptom management - consider imaging: CT ab/pelvis or U/S - Basic labs, EKG, troponin, CTA chest abdomen pelvis Patient will also get a breathing treatment and steroids given her wheezing on exam. Handoff of care to Dr. Kemp at 7 PM. He will follow-up on all labs and imaging, reexamine patient. Ultimate disposition per this. (CYRIL ADAMSON) Patient endorsed to Dr. Kemp at approximately 7 PM at the change of shift. Dr. Kemp advised to follow-up on pending studies including CT chest CT abdomen pelvis and labs. CT chest CT abdomen pelvis are both negative. Troponin negative x 2. Lipase within normal limits. Patient continues to complain of lower chest pain. No epigastric tenderness. Lungs are now clear. Patient's heart score is 3. However patient does not know her cholesterol and has not had her cholesterol checked in some time. However in light of patient's ongoing chest pain and cardiovascular risk factors patient will be admitted for further evaluation and treatment. Plan of care discussed with patient. She agrees to admission to [facility] for further evaluation and treatment. Portions of this note were created with voice recognition technology. There may be grammatical, spelling, punctuation or sound alike errors 07/02/25 22:31 07/02/25 22:[address] Naik accepts admission to observation at 10:38 PM 07/02/25 22:38 (EVELINA KEMP) - Departure Critical Care Time: No <CYRIL ADAMSON - Last Filed: 07/02/25 19:03> - Departure Departure Disposition: Home <EVELINA KEMP - Last Filed: 07/02/25 22:38> - Departure Clinical Impression: Chest pain, Wheezing, Hiatal hernia, Epigastric pain, Dehydration, ACS (acute coronary syndrome) Condition: Stable Referrals: KAJAL SHANNON [Primary Care Provider, [facility]] - Follow up/PCP as directed Additional Instructions: Discharge/Care Plan JOSE ALEJANDRO KLEIN was seen on 07/02/25 in the Emergency Room. The patient was counseled regarding Diagnosis,Lab results, Imaging studies, need for follow up and when to return to the Emergency Room. Prescriptions given: Discharge Note I have spoken with the patient and/or caregivers. I have explained the patient's condition, diagnosis and treatment plan based on the information available to me at this time. I have answered the patient's and/or caregiver's questions and addressed any concerns. The patient and/or caregivers have as good understanding of the patient's diagnosis, condition and treatment plan as can be expected at this point. The vital signs have been stable. The patient's condition is stable and appropriate for discharge from the emergency department. The patient will pursue further outpatient evaluation with the primary care physician or other designated or consulting physician as outlined in the discharge instructions. The patient and/or caregivers are agreeable to this plan of care and follow-up instructions have been explained in detail. The patient and/or caregivers have received these instruction. The patient/and or caregivers are aware that any significant change in condition or worsening of symptoms should prompt an immediate return to this or the closest emergency department or call 911.
[2025-07-02] MEDS ORDERED: PROVENTIL 2.5 MG/3 ML NEB IH ONE (19:13)
[2025-07-02 19:14] LABS: INR 0.92 (0.8-3.0); PROTIME 10.1 SECONDS (9.4-12.5); PTT 24.6 SECONDS (25.1-36.5)
[2025-07-02 19:15] LABS: CK-Creatinine Phosphokinase 88.0 U/L (30-135); Calcium 9.7 mg/dL (8.4-10.2); Carbon Dioxide 28.0 mmol/L (22-30); Glucose 103.0 mg/dL (74-106); Potassium 3.4 mmol/L (3.5-5.1); SGOT/AST 26.0 U/L (14-36); SGPT/ALT 27.0 U/L (0-35); Total Protein 7.6 g/dL (6.3-8.2)
[2025-07-02 19:19] LABS: Creatinine 1 0.64 mg/dL (0.52-1.04); EST GLOMERULAR FILTRATION RATE 111.7 ML/MIN
[2025-07-02 19:27] LABS: NT PRO BNPII < 20.0 pg/mL (<300); TROPONIN < 0.012 ng/mL (0.000-0.033)
[2025-07-02] MEDS: PROVENTIL 2.5 MG/3 ML NEB IH ONE (19:32)
[2025-07-02 20:00] LABS: Glucose, Urine Negative (Negative); Protein,Urine Dip Trace (Negative); RBC 0-2 /HPF (0-5); WBC 0-2 /HPF (0-5)
[2025-07-02] MEDS ORDERED: NITRO-BID 2% UD PACKETS ONE (22:31)
[2025-07-02] MEDS ORDERED: XYLOCAINE VISCOUS 2% 15 ML CUP ONE (22:31)
[2025-07-02] MEDS: NITRO-BID 2% UD PACKETS TOP ONE (22:32)
[2025-07-02] MEDS ORDERED: MAALOX ES 30 ML UNIT DOSE ONE (22:32)
[2025-07-02] MEDS: GI COCKTAIL 45 ML (Maalox/Lidocaine) PO ONE ×2 (22:32→22:41)
[2025-07-02 23:25] VITALS: RESP 16
[2025-07-03] MEDS ORDERED: TYLENOL 325 MG PO PRN (00:23)
[2025-07-03] MEDS ORDERED: Nitrostat 0.4 MG Tablet SL PRN (00:26)
[2025-07-03] MEDS ORDERED: Ativan 1 MG PO PRN (00:33)
--- NOTE | 2025-07-03 00:35 | PCM.HP ---
History of Present Illness - Chief Complaint Chief Complaint: Chest pain, ACS, SOB Date: 07/02/25 History of Present Illness: is a 44 year old female with past medical history of GERD, anxiety, depression, Hodgkin's lymphoma diagnosed 2010 status post chemoradiation and currently in remission, obesity, tobacco dependence, alcohol dependence presented to the ED complaining of chest pain. Reports that her chest pain is substernal, nonradiating, was 7 out of 10, described as heaviness/pressure/sharp, was initially 7 out of 10 and constant until she presented to the ED. Pain subsided after she was given aspirin and nitro. She had associated shortness of breath, nausea and 4 episodes of nonbloody nonbilious vomiting. Had some chicken noodle soup earlier in the day which she was able to keep down for a while. Denies abdominal pain, melena, rectal ble eding, dysuria, urinary frequency or urgency. Denies fever, chills, cough. She did not have to use her as needed albuterol earlier in the day. Initial cardiac workup in the ED was negative. Patient was noted to have a heart score of 3. Patient had a CT of the chest which was showing a hiatal hernia but otherwise was reportedly unremarkable. CT of the abdomen pelvis was reportedly within normal limits. Labs are notable for white blood cell count of 12.7 and a potassium of 3.4. She was noted to be wheezing in the ED and given steroids and a nebulizer treatment. Patient reports that she smokes 1/2 pack/day and has been smoking for about 25 years, drinks a sixpack beer daily, does endorse snorting methamphetamine regularly and last use was yesterday. - Review of Systems Constitutional: No Symptoms Eyes: No Symptoms Ears, Nose, & Throat: No Symptoms Respiratory: Short Of Breath, Wheezing Cardiac: Chest Pain Abdominal/Gastrointestinal: Nausea, Vomiting Genitourinary Symptoms: No Symptoms Musculoskeletal: No Symptoms Skin: No Symptoms Neurological: No Symptoms Psychological: No Symptoms Endocrine: No Symptoms Hematologic/Lymphatic: No Symptoms Immunological/Allergic: No Symptoms All Other Systems: Reviewed and Negative Medications & Allergies Home Medications: Home Medication List Albuterol Sulfate [Albuterol Sulfate Hfa] 2 inh PO Q6HPRN PRN 07/02/25 [History Confirmed 07/02/25] Allergies/Adverse Reactions: Allergies Allergy/AdvReac Type Severity Reaction Status Date / Time No Known Drug Allergies Allergy Verified 07/02/25 18:07 - Past Medical History Past Medical History: Yes Neurological History: No Pertinent History ENT History: No Pertinent History Cardiac History: No Pertinent History Respiratory History: Bronchitis, COPD Endocrine Medical History: No Pertinent History Musculoskelatal History: Arthritis GI Medical History: GERD History: No Pertinent History Pyscho-Social History: Anxiety, Bipolar, Depression Reproductive Disorders: No Pertinent History Comment: Hodgkins Lymphoma - Female History Hx Last Menstrual Period: UNKNOWN Are you now?: No (tubal) - Past Surgical History Past Surgical History: Yes Neuro Surgical History: No Pertinent History Cardiac History: No Pertinent History Respiratory Surgery: No Pertinent History GI Surgical History: Appendectomy Genitourinary Surgical Hx: No Pertinent History Musculskeletal Surgical Hx: No Pertinent History Female Surgical History: Tubal Ligation Other Surgical History: PORT-A-CATH, skin biopsy, knee sx Significant Family History: no pertinent family hx - Social History Smoking Status: Current every day smoker How long have you smoked: 20 years Exposure to second hand smoke: No Alcohol: Daily Drug Use: methamphetamines - Social Determinants of Health Will the patient participate in the screening: Yes Do you worry about a steady place to live?: No Do you have any problems with any of the following?: No known problems In the past 12 months,have you had to go without utilities?: No Have you or anyone in your house had to go without enough: No Transportation Issues: No Has anyone in your support network made you feel unsafe?: No Does the patient want assistance with any of the above?: No - Physical Exam Vital Signs: Vital Signs - 24 hr Temp Pulse Resp BP BP Pulse Ox 07/03/25 00:00 84 16 92 L 07/02/25 23:53 98.6 F 84 16 124/73 91 L 07/02/25 23:34 91 L 07/02/25 23:12 98.6 F 74 16 124/73 91 L 07/02/25 22:30 74 137/105 96 07/02/25 22:00 77 19 148/87 96 07/02/25 21:30 71 20 139/93 96 07/02/25 21:00 88 21 137/91 94 L 07/02/25 20:30 84 18 134/85 93 L 07/02/25 20:00 88 21 135/80 96 07/02/25 19:34 90 20 98 07/02/25 19:30 86 22 146/96 98 07/02/25 19:07 96 07/02/25 19:00 86 13 104/87 98 07/02/25 18:30 84 11 L 148/93 96 07/02/25 18:00 97.5 F 86 18 165/89 165/89 96 General Appearance: no apparent distress, alert, obese Neurologic Exam: alert, oriented x 3, cooperative, normal mood/affect Eye Exam: PERRL/EOMI, eyes nml inspection Ears, Nose, Throat Exam: moist mucous membranes Neck Exam: normal inspection, non-tender Respiratory Exam: normal breath sounds, lungs clear Cardiovascular Exam: regular rate/rhythm, normal heart sounds, normal peripheral pulses Gastrointestinal/Abdomen Exam: soft, normal bowel sounds Pelvic Exam: not done Rectal Exam: not done Extremity Exam: normal inspection Skin Exam: normal color Results - Labs Lab/Micro Results: Lab Results-Last 24 Hours 07/02/25 07/02/25 07/02/25 Range/Units 18:55 18:55 18:55 WBC 12.7 H (3.98-10.04) x10^3/uL RBC 4.56 (3.93-5.22) x10^6/uL Hgb 14.7 (11.2-15.7) g/dL Hct 40.8 (34.1-44.9) % MCV 89.5 (79.4-94.8) fL MCH 32.2 (25.6-32.2) pg MCHC 36.0 H (32.2-35.5) g/dL RDW 12.9 (11.7-14.4) % Plt Count 424 H (182-369) x10^3/uL MPV 9.1 L (9.4-12.3) fL Gran % 67.4 (34.0-71.1) % Immature Gran % (Auto) 0.4 (0.001-0.429) % Nucleat RBC Rel Count 0.0 (0.00-0.2) % Eos # (Auto) 0.26 (0.04-0.36) x10^3/uL Immature Gran # (Auto) 0.05 H (0.001-0.031) x10^3u/L Absolute Lymphs (auto) 2.71 (1.18-3.74) x10^3/uL Absolute Monos (auto) 1.07 H (0.24-0.86) x10^3/uL Absolute Nucleated RBC 0.00 (0.00-0.012) x10^3u/L Lymphocytes % 21.3 (19.3-51.7) % Monocytes % 8.4 (4.7-12.5) % Eosinophils % 2.0 (0.7-5.8) % Basophils % 0.5 (0.1-1.2) % Absolute Granulocytes 8.57 H (1.56-6.13) x10^3/uL Basophils # 0.07 (0.01-0.08) x10^3/uL PT 10.1 (9.4-12.5) SECONDS INR 0.92 (0.8-3.0) APTT 24.6 L (25.1-36.5) SECONDS Sodium 134 L (135-145) mmol/L Potassium 3.4 L (3.5-5.1) mmol/L Chloride 98 (98-107) mmol/L Carbon Dioxide 28 (22-30) mmol/L Anion Gap 11.6 (5-15) MEQ/L BUN 16 (7-17) mg/dL Creatinine 0.64 (0.52-1.04) mg/dL Estimated GFR 111.7 ML/MIN Glucose 103 (74-106) mg/dL Lactic Acid (0.4-2.0) Calcium 9.7 (8.4-10.2) mg/dL Total Bilirubin 0.80 (0.2-1.3) mg/dL AST 26 (14-36) U/L ALT 27 (0-35) U/L Alkaline Phosphatase 67 (38-126) U/L Creatine Kinase 88 (30-135) U/L Troponin I (0.000-0.033) ng/mL NT-Pro-B Natriuret Pep (<300) pg/mL Serum Total Protein 7.6 (6.3-8.2) g/dL Albumin 4.6 (3.5-5.0) g/dL Lipase 73 (23-300) U/L Urine Color (Yellow) Urine Appearance (Clear) Urine pH (4.6-8.0) Ur Specific [place] (1.005-1.030) Urine Protein (Negative) Urine Glucose (UA) (Negative) mg/dL Urine Ketones (Negative) Urine Blood (Negative) Urine Nitrite (Negative) Urine Bilirubin (Negative) Urine Urobilinogen (0.2) mg/dL Ur Leukocyte Esterase (Negative) U Hyaline Cast (Auto) (0-2) /LPF Urine Microscopic RBC (0-5) /HPF Urine Microscopic WBC (0-5) /HPF Ur Epithelial Cells (None Seen) /HPF Urine Bacteria (None Seen) /HPF Urine Culture Reflexed (NO) 07/02/25 07/02/25 07/02/25 Range/Units 18:55 19:10 19:47 WBC (3.98-10.04) x10^3/uL RBC (3.93-5.22) x10^6/uL Hgb (11.2-15.7) g/dL Hct (34.1-44.9) % MCV (79.4-94.8) fL MCH (25.6-32.2) pg MCHC (32.2-35.5) g/dL RDW (11.7-14.4) % Plt Count (182-369) x10^3/uL MPV (9.4-12.3) fL Gran % (34.0-71.1) % Immature Gran % (Auto) (0.001-0.429) % Nucleat RBC Rel Count (0.00-0.2) % Eos # (Auto) (0.04-0.36) x10^3/uL Immature Gran # (Auto) (0.001-0.031) x10^3u/L Absolute Lymphs (auto) (1.18-3.74) x10^3/uL Absolute Monos (auto) (0.24-0.86) x10^3/uL Absolute Nucleated RBC (0.00-0.012) x10^3u/L Lymphocytes % (19.3-51.7) % Monocytes % (4.7-12.5) % Eosinophils % (0.7-5.8) % Basophils % (0.1-1.2) % Absolute Granulocytes (1.56-6.13) x10^3/uL Basophils # (0.01-0.08) x10^3/uL PT (9.4-12.5) SECONDS INR (0.8-3.0) APTT (25.1-36.5) SECONDS Sodium (135-145) mmol/L Potassium (3.5-5.1) mmol/L Chloride (98-107) mmol/L Carbon Dioxide (22-30) mmol/L Anion Gap (5-15) MEQ/L BUN (7-17) mg/dL Creatinine (0.52-1.04) mg/dL Estimated GFR ML/MIN Glucose (74-106) mg/dL Lactic Acid 1.4 (0.4-2.0) Calcium (8.4-10.2) mg/dL Total Bilirubin (0.2-1.3) mg/dL AST (14-36) U/L ALT (0-35) U/L Alkaline Phosphatase (38-126) U/L Creatine Kinase (30-135) U/L Troponin I < 0.012 (0.000-0.033) ng/mL NT-Pro-B Natriuret Pep < 20.0 (<300) pg/mL Serum Total Protein (6.3-8.2) g/dL Albumin (3.5-5.0) g/dL Lipase (23-300) U/L Urine Color Yellow (Yellow) Urine Appearance Clear (Clear) Urine pH 8.5 A (4.6-8.0) Ur Specific [place] >=1.030 A (1.005-1.030) Urine Protein Trace A (Negative) Urine Glucose (UA) Negative (Negative) mg/dL Urine Ketones Negative (Negative) Urine Blood Negative (Negative) Urine Nitrite Negative (Negative) Urine Bilirubin Negative (Negative) Urine Urobilinogen 1.0 A (0.2) mg/dL Ur Leukocyte Esterase Negative (Negative) U Hyaline Cast (Auto) NONE SEEN (0-2) /LPF Urine Microscopic RBC 0-2 (0-5) /HPF Urine Microscopic WBC 0-2 (0-5) /HPF Ur Epithelial Cells Rare (None Seen) /HPF Urine Bacteria None Seen (None Seen) /HPF Urine Culture Reflexed NO (NO) 07/02/25 Range/Units 21:20 WBC (3.98-10.04) x10^3/uL RBC (3.93-5.22) x10^6/uL Hgb (11.2-15.7) g/dL Hct (34.1-44.9) % MCV (79.4-94.8) fL MCH (25.6-32.2) pg MCHC (32.2-35.5) g/dL RDW (11.7-14.4) % Plt Count (182-369) x10^3/uL MPV (9.4-12.3) fL Gran % (34.0-71.1) % Immature Gran % (Auto) (0.001-0.429) % Nucleat RBC Rel Count (0.00-0.2) % Eos # (Auto) (0.04-0.36) x10^3/uL Immature Gran # (Auto) (0.001-0.031) x10^3u/L Absolute Lymphs (auto) (1.18-3.74) x10^3/uL Absolute Monos (auto) (0.24-0.86) x10^3/uL Absolute Nucleated RBC (0.00-0.012) x10^3u/L Lymphocytes % (19.3-51.7) % Monocytes % (4.7-12.5) % Eosinophils % (0.7-5.8) % Basophils % (0.1-1.2) % Absolute Granulocytes (1.56-6.13) x10^3/uL Basophils # (0.01-0.08) x10^3/uL PT (9.4-12.5) SECONDS INR (0.8-3.0) APTT (25.1-36.5) SECONDS Sodium (135-145) mmol/L Potassium (3.5-5.1) mmol/L Chloride (98-107) mmol/L Carbon Dioxide (22-30) mmol/L Anion Gap (5-15) MEQ/L BUN (7-17) mg/dL Creatinine (0.52-1.04) mg/dL Estimated GFR ML/MIN Glucose (74-106) mg/dL Lactic Acid (0.4-2.0) Calcium (8.4-10.2) mg/dL Total Bilirubin (0.2-1.3) mg/dL AST (14-36) U/L ALT (0-35) U/L Alkaline Phosphatase (38-126) U/L Creatine Kinase (30-135) U/L Troponin I < 0.012 (0.000-0.033) ng/mL NT-Pro-B Natriuret Pep (<300) pg/mL Serum Total Protein (6.3-8.2) g/dL Albumin (3.5-5.0) g/dL Lipase (23-300) U/L Urine Color (Yellow) Urine Appearance (Clear) Urine pH (4.6-8.0) Ur Specific [place] (1.005-1.030) Urine Protein (Negative) Urine Glucose (UA) (Negative) mg/dL Urine Ketones (Negative) Urine Blood (Negative) Urine Nitrite (Negative) Urine Bilirubin (Negative) Urine Urobilinogen (0.2) mg/dL Ur Leukocyte Esterase (Negative) U Hyaline Cast (Auto) (0-2) /LPF Urine Microscopic RBC (0-5) /HPF Urine Microscopic WBC (0-5) /HPF Ur Epithelial Cells (None Seen) /HPF Urine Bacteria (None Seen) /HPF Urine Culture Reflexed (NO) - Radiology Impressions Radiology Exams & Impressions: Radiology Procedures Category Date Time Status ABDOMEN AND PELVIS W CONTRAST [CT] Stat Exams 07/02/25 18:45 Taken CHEST WITH CONTRAST [CT] Stat Exams 07/02/25 18:44 Taken - Other Procedures and Tests Respiratory Therapy 07/02/25 19:34 Respiratory Therapy Assessment DAILY Assessment/Plan (1) Chest pain Current Visit: Yes Status: Acute Assessment & Plan: Monitor on telemetry and trend troponin to rule out ACS Recommend outpatient stress test Nitro PRN Will start PPI - patient may also need outpatient follow up with GI for hiatal hernia/possible gastroesophageal orgin of symptoms Code(s): R07.9 - CHEST PAIN, UNSPECIFIED (2) Hypokalemia Current Visit: Yes Status: Acute Assessment & Plan: Replace with 40 meq potassium chloride Check and replace magnesium if deficient Code(s): E87.6 - HYPOKALEMIA (3) Wheezing Current Visit: Yes Status: Acute Assessment & Plan: May have underlying COPD with acute exacerbation Consider outpatient pulm eval/PFTs Continue Duonebs/prednisone x 5 days Supplemental oxygen PRN Code(s): R06.2 - WHEEZING (4) Alcohol dependence Current Visit: Yes Status: Acute Qualifiers: Substance use status: with intoxication Complication of substance-induced condition: uncomplicated Qualified Code(s): F10.220 - Alcohol dependence with intoxication, uncomplicated Assessment & Plan: CIWA Protocol Ativan PRN IV fluids, thiamine, folic acid, multivitamin Code(s): F10.20 - ALCOHOL DEPENDENCE, UNCOMPLICATED (5) Hiatal hernia Current Visit: Yes Status: Acute Assessment & Plan: Start PPI Recommend outpatient GI evaluation Code(s): K44.9 - DIAPHRAGMATIC HERNIA WITHOUT OBSTRUCTION OR GANGRENE (6) Class 1 obesity Current Visit: Yes Status: Acute Code(s): E66.811 - OBESITY, CLASS 1 (7) Depression Current Visit: Yes Status: Acute Qualifiers: Depression Type: unspecified Qualified Code(s): F32.9 - Major depressive disorder, single episode, unspecified Assessment & Plan: Not currently on treatment Code(s): F32.9 - MAJOR DEPRESSIVE DISORDER, SINGLE EPISODE, UNSPECIFIED (8) Leukocytosis Current Visit: Yes Status: Acute Qualifiers: Leukocytosis type: unspecified Qualified Code(s): D72.829 - Elevated white blood cell count, unspecified Assessment & Plan: No signs or symptoms of infection Monitor clinically Code(s): D72.829 - ELEVATED WHITE BLOOD CELL COUNT, UNSPECIFIED (9) Nausea & vomiting Current Visit: Yes Status: Acute Qualifiers: Vomiting type: unspecified Qualified Code(s): R11.2 - Nausea with vomiting, unspecified Assessment & Plan: Zofran PRN Code(s): R11.2 - NAUSEA WITH VOMITING, UNSPECIFIED (10) Tobacco dependence Current Visit: Yes Status: Chronic Assessment & Plan: Declined nicotene patch Code(s): F17.200 - NICOTINE DEPENDENCE, UNSPECIFIED, UNCOMPLICATED Telemedicine Encounter - Telemedicine Encounter Telemedicine Encounter: "The entirety of this encounter was performed via Telemedicine" This visit was performed using real-time audio and video connection between my location and thepatients locationwith the assistance of a surrogateat the patients location. Written or verbal consent was obtained from the patient/guardian to perform this visit [facility]. Any patient questions regarding the telemedicine interaction were answered.
[2025-07-03] MEDS ORDERED: DUONEB 0.5-3 MG/3 ml Neb IH SCH (01:00)
[2025-07-03 01:44] LABS: Amphetamine,Urine POSITIVE (NEGATIVE); Barbiturate,Urine NEGATIVE (NEGATIVE); Benzodiazepine,Urine NEGATIVE (NEGATIVE); Cocaine,Urine NEGATIVE (NEGATIVE); Methadone,Urine NEGATIVE (NEGATIVE); Opiate,Urine NEGATIVE (NEGATIVE); PCP,Urine NEGATIVE (NEGATIVE); THC,Urine POSITIVE (NEGATIVE)
[2025-07-03] MEDS: Zofran 4 MG/2 ML VIAL IV PRN (02:38)
[2025-07-03 04:11] LABS: Calcium 9.1 mg/dL (8.4-10.2); Carbon Dioxide 28.0 mmol/L (22-30); Cholesterol 250.0 mg/dL (50-200); Creatinine 1 0.83 mg/dL (0.52-1.04); EST GLOMERULAR FILTRATION RATE 89.1 ML/MIN; Glucose 123.0 mg/dL (74-106); LDL, DIRECT 152.0 mg/dL (30-100); Potassium 3.7 mmol/L (3.5-5.1); SGOT/AST 29.0 U/L (14-36); SGPT/ALT 25.0 U/L (0-35); TRIGLYCERIDE 331.0 mg/dL (30-150); Total Protein 7.1 g/dL (6.3-8.2)
[2025-07-03 04:13] LABS: Hematocrit 41.2 % (34.1-44.9); Hemoglobin 14.6 g/dL (11.2-15.7); Mean Corpuscular Hemoglobin 32.3 pg (25.6-32.2); Mean Corpuscular Hgb Concent. 35.4 g/dL (32.2-35.5); Platelet Count 418 x10^3/uL (182-369); Red Blood Count 4.52 x10^6/uL (3.93-5.22); White Blood Count 12.7 x10^3/uL (3.98-10.04)
[2025-07-03] MEDS: THERAGRAN MULTIVITAMIN PO SCH (07:55)
[2025-07-03] MEDS: Protonix 40MG Tablet PO SCH (07:55)
[2025-07-03] MEDS: DELTASONE 20 MG PO SCH (07:55)
[2025-07-03] MEDS: MAG-OX 400 PO SCH (07:55)
[2025-07-03] MEDS: VITAMIN B-1 100 MG PO SCH (07:55)
[2025-07-03] MEDS: LIPITOR 40MG PO SCH (07:56)
[2025-07-03] MEDS: FOLATE 1 MG PO SCH (07:56)
[2025-07-03] MEDS: ENOXAPARIN SODIUM SQ SCH (07:56)
--- NOTE | 2025-07-03 08:47 | XRAY ---
Indication: Chest pain. Short of breath. Multiple contiguous axial images obtained through the chest using 100 cc Isovue 370 contrast and PE protocol. Comparison: April 30, 2014 Adequate opacification pulmonary arteries to include lobar and segmental branches. No pulmonary embolus. Heart not enlarged. Aorta is normal in course and caliber. There are now small left hilar calcified nodes. No pathologic mediastinal/hilar lymphadenopathy. New small hiatal hernia. Lungs inflated with stable tiny left lower lobe calcified granuloma. No suspicious pulmonary mass/nodule, infiltrate, or effusion. Bony thorax intact. CT abdomen/pelvis reported separately. Impression: Chronic findings including hiatal hernia and old granulomatous disease. Remaining CT chest pulmonary embolus exam is normal.
--- NOTE | 2025-07-03 08:51 | XRAY ---
Indication: Epigastric pain Multiple contiguous axial images obtained through the abdomen and pelvis using 100 cc Isovue 370 contrast. Comparison: October 02, 2019 CT chest reported separately. Noncontrasted stomach and bowel loops appear nonobstructed. Appendectomy reported. Again incidental tiny hepatic/splenic calcified granulomas. No free fluid/air. Remaining liver, gallbladder, pancreas, spleen, adrenal glands, kidneys, ureters, bladder, and uterus are unremarkable. Again minimal aortoiliac calcifications. No AAA or pathologic retroperitoneal lymphadenopathy. Osseous structures intact again with stable remote L2 wedging deformity. Impression: 1. Again chronic findings including arteriosclerotic disease, remote L2 wedging deformity, and old granulomatous disease. 2. Remaining CT abdomen/pelvis with contrast exam is negative.
[2025-07-03] MEDS: VENTOLIN COMMON CANISTER IH PRN (08:52)
--- NOTE | 2025-07-03 12:25 | PCM.DS ---
Discharge Summary Date of Admission: 07/02/25 22:47 Date of Discharge: 07/03/25 Admitting Physician: MARITZA MCDONNELL MD Primary Care Provider: NO FAMILY DOCTOR Allergies Allergies No Known Drug Allergies Allergy (Verified 07/02/25 18:07) Hospital Summary - Hospital Course Hospital Course: Ms. Barkley is a 44-year-old female with a history of GERD, anxiety, depression, Hodgkins lymphoma in remission (diagnosed 2009, status post chemoradiation), obesity, tobacco dependence, and alcohol dependence who presented with substernal chest pain described as pressure/heaviness, initially 7/10, nonradiating, and associated with shortness of breath, nausea, and four episodes of nonbloody, nonbilious emesis. Pain improved following administration of aspirin and nitroglycerin in the ED. She denied abdominal pain, GI bleeding, urinary complaints, or infectious symptoms. She reported last methamphetamine use the day prior to admission and continues regular alcohol and tobacco use. Initial ED workup revealed an unremarkable EKG, negative serial troponins, and a HEART score of 3. CT chest demonstrated a hiatal hernia, otherwise unremarkable; CT abdomen/pelvis was within normal limits. Laboratory studies showed leukocytosis (WBC 12.7) and mild hypokalemia (K 3.4). She was noted to have expiratory wheezes in the ED and was treated with steroids and nebulized bronchodilators. Symptoms improved and chest pain resolved. During admission, patient was counseled on cessation of amphetamines, THC, tobacco, and alcohol. She declined resources and expressed no interest in discontinuing substance use at this time. Atorvastatin 40 mg daily was initiated for hyperlipidemia. Outpatient cardiology follow-up was advised, including consideration of a stress test. Outpatient GI evaluation for hiatal hernia was also recommended. Discharge Note New Diagnosis: CP New Medications: Atorvastatin 40mg daily/protonix 40mg daily/Nitro prn Follow Up: PCP/Cardiology I spent 35 minutes [id number] with the patient on the day of discharge performing discharge exam, discussing hospital stay and discharge instructions with patient and caregivers, preparation of discharge records, prescriptions & referral forms and addressing any questions/concerns the patient had as documented above. - Vitals & Intake/Output Vital Signs: Vital Signs Temperature 98.7 F 07/03/25 06:59 Pulse Rate 91 H 07/03/25 08:49 Respiratory Rate 16 07/03/25 08:49 Blood Pressure 150/82 07/03/25 06:59 O2 Sat by Pulse Oximetry 97 07/03/25 08:49 Intake & Output: Intake & Output 07/01/25 07/02/25 07/03/25 07/04/25 11:59 11:59 11:59 11:59 Intake Total 480 Balance 480 Weight 77.6 kg - Lab Result Diagrams: 07/03/25 03:30 07/03/25 03:30 Lab Results-Last 24 Hrs: Lab Results-Last 24 Hours 07/02/25 07/02/25 07/02/25 Range/Units 18:55 18:55 18:55 WBC 12.7 H (3.98-10.04) x10^3/uL RBC 4.56 (3.93-5.22) x10^6/uL Hgb 14.7 (11.2-15.7) g/dL Hct 40.8 (34.1-44.9) % MCV 89.5 (79.4-94.8) fL MCH 32.2 (25.6-32.2) pg MCHC 36.0 H (32.2-35.5) g/dL RDW 12.9 (11.7-14.4) % Plt Count 424 H (182-369) x10^3/uL MPV 9.1 L (9.4-12.3) fL Gran % 67.4 (34.0-71.1) % Immature Gran % (Auto) 0.4 (0.001-0.429) % Nucleat RBC Rel Count 0.0 (0.00-0.2) % Eos # (Auto) 0.26 (0.04-0.36) x10^3/uL Immature Gran # (Auto) 0.05 H (0.001-0.031) x10^3u/L Absolute Lymphs (auto) 2.71 (1.18-3.74) x10^3/uL Absolute Monos (auto) 1.07 H (0.24-0.86) x10^3/uL Absolute Nucleated RBC 0.00 (0.00-0.012) x10^3u/L Lymphocytes % 21.3 (19.3-51.7) % Monocytes % 8.4 (4.7-12.5) % Eosinophils % 2.0 (0.7-5.8) % Basophils % 0.5 (0.1-1.2) % Absolute Granulocytes 8.57 H (1.56-6.13) x10^3/uL Basophils # 0.07 (0.01-0.08) x10^3/uL PT 10.1 (9.4-12.5) SECONDS INR 0.92 (0.8-3.0) APTT 24.6 L (25.1-36.5) SECONDS Sodium 134 L (135-145) mmol/L Potassium 3.4 L (3.5-5.1) mmol/L Chloride 98 (98-107) mmol/L Carbon Dioxide 28 (22-30) mmol/L Anion Gap 11.6 (5-15) MEQ/L BUN 16 (7-17) mg/dL Creatinine 0.64 (0.52-1.04) mg/dL Estimated GFR 111.7 ML/MIN Glucose 103 (74-106) mg/dL Hemoglobin A1c (4.5-6.0) % Lactic Acid (0.4-2.0) Calcium 9.7 (8.4-10.2) mg/dL Magnesium (1.6-2.3) mg/dL Total Bilirubin 0.80 (0.2-1.3) mg/dL AST 26 (14-36) U/L ALT 27 (0-35) U/L Alkaline Phosphatase 67 (38-126) U/L Creatine Kinase 88 (30-135) U/L Troponin I (0.000-0.033) ng/mL NT-Pro-B Natriuret Pep (<300) pg/mL Serum Total Protein 7.6 (6.3-8.2) g/dL Albumin 4.6 (3.5-5.0) g/dL Triglycerides (30-150) mg/dL Cholesterol (50-200) mg/dL LDL Cholesterol (30-100) mg/dL HDL Cholesterol (40-60) mg/dL Heart Disease Risk Ratio Lipase 73 (23-300) U/L Urine Color (Yellow) Urine Appearance (Clear) Urine pH (4.6-8.0) Ur Specific [place] (1.005-1.030) Urine Protein (Negative) Urine Glucose (UA) (Negative) mg/dL Urine Ketones (Negative) Urine Blood (Negative) Urine Nitrite (Negative) Urine Bilirubin (Negative) Urine Urobilinogen (0.2) mg/dL Ur Leukocyte Esterase (Negative) U Hyaline Cast (Auto) (0-2) /LPF Urine Microscopic RBC (0-5) /HPF Urine Microscopic WBC (0-5) /HPF Ur Epithelial Cells (None Seen) /HPF Urine Bacteria (None Seen) /HPF Urine Culture Reflexed (NO) Urine Opiates Level (NEGATIVE) Ur Methadone (NEGATIVE) Urine Barbiturates (NEGATIVE) Ur Phencyclidine (PCP) (NEGATIVE) Urine Amphetamine (NEGATIVE) U Benzodiazepine Level (NEGATIVE) Urine Cocaine (NEGATIVE) Urine Marijuana (THC) (NEGATIVE) 07/02/25 07/02/25 07/02/25 Range/Units 18:55 19:10 19:47 WBC (3.98-10.04) x10^3/uL RBC (3.93-5.22) x10^6/uL Hgb (11.2-15.7) g/dL Hct (34.1-44.9) % MCV (79.4-94.8) fL MCH (25.6-32.2) pg MCHC (32.2-35.5) g/dL RDW (11.7-14.4) % Plt Count (182-369) x10^3/uL MPV (9.4-12.3) fL Gran % (34.0-71.1) % Immature Gran % (Auto) (0.001-0.429) % Nucleat RBC Rel Count (0.00-0.2) % Eos # (Auto) (0.04-0.36) x10^3/uL Immature Gran # (Auto) (0.001-0.031) x10^3u/L Absolute Lymphs (auto) (1.18-3.74) x10^3/uL Absolute Monos (auto) (0.24-0.86) x10^3/uL Absolute Nucleated RBC (0.00-0.012) x10^3u/L Lymphocytes % (19.3-51.7) % Monocytes % (4.7-12.5) % Eosinophils % (0.7-5.8) % Basophils % (0.1-1.2) % Absolute Granulocytes (1.56-6.13) x10^3/uL Basophils # (0.01-0.08) x10^3/uL PT (9.4-12.5) SECONDS INR (0.8-3.0) APTT (25.1-36.5) SECONDS Sodium (135-145) mmol/L Potassium (3.5-5.1) mmol/L Chloride (98-107) mmol/L Carbon Dioxide (22-30) mmol/L Anion Gap (5-15) MEQ/L BUN (7-17) mg/dL Creatinine (0.52-1.04) mg/dL Estimated GFR ML/MIN Glucose (74-106) mg/dL Hemoglobin A1c (4.5-6.0) % Lactic Acid 1.4 (0.4-2.0) Calcium (8.4-10.2) mg/dL Magnesium (1.6-2.3) mg/dL Total Bilirubin (0.2-1.3) mg/dL AST (14-36) U/L ALT (0-35) U/L Alkaline Phosphatase (38-126) U/L Creatine Kinase (30-135) U/L Troponin I < 0.012 (0.000-0.033) ng/mL NT-Pro-B Natriuret Pep < 20.0 (<300) pg/mL Serum Total Protein (6.3-8.2) g/dL Albumin (3.5-5.0) g/dL Triglycerides (30-150) mg/dL Cholesterol (50-200) mg/dL LDL Cholesterol (30-100) mg/dL HDL Cholesterol (40-60) mg/dL Heart Disease Risk Ratio Lipase (23-300) U/L Urine Color Yellow (Yellow) Urine Appearance Clear (Clear) Urine pH 8.5 A (4.6-8.0) Ur Specific [place] >=1.030 A (1.005-1.030) Urine Protein Trace A (Negative) Urine Glucose (UA) Negative (Negative) mg/dL Urine Ketones Negative (Negative) Urine Blood Negative (Negative) Urine Nitrite Negative (Negative) Urine Bilirubin Negative (Negative) Urine Urobilinogen 1.0 A (0.2) mg/dL Ur Leukocyte Esterase Negative (Negative) U Hyaline Cast (Auto) NONE SEEN (0-2) /LPF Urine Microscopic RBC 0-2 (0-5) /HPF Urine Microscopic WBC 0-2 (0-5) /HPF Ur Epithelial Cells Rare (None Seen) /HPF Urine Bacteria None Seen (None Seen) /HPF Urine Culture Reflexed NO (NO) Urine Opiates Level (NEGATIVE) Ur Methadone (NEGATIVE) Urine Barbiturates (NEGATIVE) Ur Phencyclidine (PCP) (NEGATIVE) Urine Amphetamine (NEGATIVE) U Benzodiazepine Level (NEGATIVE) Urine Cocaine (NEGATIVE) Urine Marijuana (THC) (NEGATIVE) 07/02/25 07/03/25 07/03/25 Range/Units 21:20 00:00 03:30 WBC (3.98-10.04) x10^3/uL RBC (3.93-5.22) x10^6/uL Hgb (11.2-15.7) g/dL Hct (34.1-44.9) % MCV (79.4-94.8) fL MCH (25.6-32.2) pg MCHC (32.2-35.5) g/dL RDW (11.7-14.4) % Plt Count (182-369) x10^3/uL MPV (9.4-12.3) fL Gran % (34.0-71.1) % Immature Gran % (Auto) (0.001-0.429) % Nucleat RBC Rel Count (0.00-0.2) % Eos # (Auto) (0.04-0.36) x10^3/uL Immature Gran # (Auto) (0.001-0.031) x10^3u/L Absolute Lymphs (auto) (1.18-3.74) x10^3/uL Absolute Monos (auto) (0.24-0.86) x10^3/uL Absolute Nucleated RBC (0.00-0.012) x10^3u/L Lymphocytes % (19.3-51.7) % Monocytes % (4.7-12.5) % Eosinophils % (0.7-5.8) % Basophils % (0.1-1.2) % Absolute Granulocytes (1.56-6.13) x10^3/uL Basophils # (0.01-0.08) x10^3/uL PT (9.4-12.5) SECONDS INR (0.8-3.0) APTT (25.1-36.5) SECONDS Sodium (135-145) mmol/L Potassium (3.5-5.1) mmol/L Chloride (98-107) mmol/L Carbon Dioxide (22-30) mmol/L Anion Gap (5-15) MEQ/L BUN (7-17) mg/dL Creatinine (0.52-1.04) mg/dL Estimated GFR ML/MIN Glucose (74-106) mg/dL Hemoglobin A1c (4.5-6.0) % Lactic Acid (0.4-2.0) Calcium (8.4-10.2) mg/dL Magnesium (1.6-2.3) mg/dL Total Bilirubin (0.2-1.3) mg/dL AST (14-36) U/L ALT (0-35) U/L Alkaline Phosphatase (38-126) U/L Creatine Kinase (30-135) U/L Troponin I < 0.012 < 0.012 (0.000-0.033) ng/mL NT-Pro-B Natriuret Pep (<300) pg/mL Serum Total Protein (6.3-8.2) g/dL Albumin (3.5-5.0) g/dL Triglycerides (30-150) mg/dL Cholesterol (50-200) mg/dL LDL Cholesterol (30-100) mg/dL HDL Cholesterol (40-60) mg/dL Heart Disease Risk Ratio Lipase (23-300) U/L Urine Color (Yellow) Urine Appearance (Clear) Urine pH (4.6-8.0) Ur Specific [place] (1.005-1.030) Urine Protein (Negative) Urine Glucose (UA) (Negative) mg/dL Urine Ketones (Negative) Urine Blood (Negative) Urine Nitrite (Negative) Urine Bilirubin (Negative) Urine Urobilinogen (0.2) mg/dL Ur Leukocyte Esterase (Negative) U Hyaline Cast (Auto) (0-2) /LPF Urine Microscopic RBC (0-5) /HPF Urine Microscopic WBC (0-5) /HPF Ur Epithelial Cells (None Seen) /HPF Urine Bacteria (None Seen) /HPF Urine Culture Reflexed (NO) Urine Opiates Level NEGATIVE (NEGATIVE) Ur Methadone NEGATIVE (NEGATIVE) Urine Barbiturates NEGATIVE (NEGATIVE) Ur Phencyclidine (PCP) NEGATIVE (NEGATIVE) Urine Amphetamine POSITIVE A (NEGATIVE) U Benzodiazepine Level NEGATIVE (NEGATIVE) Urine Cocaine NEGATIVE (NEGATIVE) Urine Marijuana (THC) POSITIVE A (NEGATIVE) 07/03/25 07/03/25 07/03/25 Range/Units 03:30 03:30 03:30 WBC 12.7 H (3.98-10.04) x10^3/uL RBC 4.52 (3.93-5.22) x10^6/uL Hgb 14.6 (11.2-15.7) g/dL Hct 41.2 (34.1-44.9) % MCV 91.2 (79.4-94.8) fL MCH 32.3 H (25.6-32.2) pg MCHC 35.4 (32.2-35.5) g/dL RDW 13.1 (11.7-14.4) % Plt Count 418 H (182-369) x10^3/uL MPV 9.3 L (9.4-12.3) fL Gran % (34.0-71.1) % Immature Gran % (Auto) (0.001-0.429) % Nucleat RBC Rel Count (0.00-0.2) % Eos # (Auto) (0.04-0.36) x10^3/uL Immature Gran # (Auto) (0.001-0.031) x10^3u/L Absolute Lymphs (auto) (1.18-3.74) x10^3/uL Absolute Monos (auto) (0.24-0.86) x10^3/uL Absolute Nucleated RBC (0.00-0.012) x10^3u/L Lymphocytes % (19.3-51.7) % Monocytes % (4.7-12.5) % Eosinophils % (0.7-5.8) % Basophils % (0.1-1.2) % Absolute Granulocytes (1.56-6.13) x10^3/uL Basophils # (0.01-0.08) x10^3/uL PT (9.4-12.5) SECONDS INR (0.8-3.0) APTT (25.1-36.5) SECONDS Sodium 132 L (135-145) mmol/L Potassium 3.7 (3.5-5.1) mmol/L Chloride 97 L (98-107) mmol/L Carbon Dioxide 28 (22-30) mmol/L Anion Gap 10.9 (5-15) MEQ/L BUN 17 (7-17) mg/dL Creatinine 0.83 (0.52-1.04) mg/dL Estimated GFR 89.1 ML/MIN Glucose 123 H (74-106) mg/dL Hemoglobin A1c 4.80 (4.5-6.0) % Lactic Acid (0.4-2.0) Calcium 9.1 (8.4-10.2) mg/dL Magnesium 2.3 (1.6-2.3) mg/dL Total Bilirubin 0.90 (0.2-1.3) mg/dL AST 29 (14-36) U/L ALT 25 (0-35) U/L Alkaline Phosphatase 61 (38-126) U/L Creatine Kinase (30-135) U/L Troponin I (0.000-0.033) ng/mL NT-Pro-B Natriuret Pep (<300) pg/mL Serum Total Protein 7.1 (6.3-8.2) g/dL Albumin 4.3 (3.5-5.0) g/dL Triglycerides 331 H (30-150) mg/dL Cholesterol 250 H (50-200) mg/dL LDL Cholesterol 152 H (30-100) mg/dL HDL Cholesterol 45 (40-60) mg/dL Heart Disease Risk Ratio 6.0 Lipase (23-300) U/L Urine Color (Yellow) Urine Appearance (Clear) Urine pH (4.6-8.0) Ur Specific [place] (1.005-1.030) Urine Protein (Negative) Urine Glucose (UA) (Negative) mg/dL Urine Ketones (Negative) Urine Blood (Negative) Urine Nitrite (Negative) Urine Bilirubin (Negative) Urine Urobilinogen (0.2) mg/dL Ur Leukocyte Esterase (Negative) U Hyaline Cast (Auto) (0-2) /LPF Urine Microscopic RBC (0-5) /HPF Urine Microscopic WBC (0-5) /HPF Ur Epithelial Cells (None Seen) /HPF Urine Bacteria (None Seen) /HPF Urine Culture Reflexed (NO) Urine Opiates Level (NEGATIVE) Ur Methadone (NEGATIVE) Urine Barbiturates (NEGATIVE) Ur Phencyclidine (PCP) (NEGATIVE) Urine Amphetamine (NEGATIVE) U Benzodiazepine Level (NEGATIVE) Urine Cocaine (NEGATIVE) Urine Marijuana (THC) (NEGATIVE) - Radiology Exams Ordered Rad Exams-Entire Visit: Radiology Procedures Category Date Time Status ABDOMEN AND PELVIS W CONTRAST [CT] Stat Exams 07/02/25 18:45 Completed CHEST WITH CONTRAST [CT] Stat Exams 07/02/25 18:44 Completed - Procedures and Test Procedures and Tests throughout Hospitalization: Therapy Orders & Screens 07/02/25 19:34 Respiratory Therapy Assessment DAILY Comment: 07/02/25 23:25 Smoking Cessation Education ONCE Comment: Diagnosis: Chest pain, ACS, SOB Smoking Status: Current every day smoker How long have you smoked: 20 years Have you smoked in the past 12 months: Yes Approximately how many cigarettes per day: 1PPD Do you dip or chew tobacco: No Discharge Exam General Appearance: no apparent distress Neurologic Exam: alert, oriented x 3, cooperative Eye Exam: PERRL Ears, Nose, Throat Exam: normal ENT inspection Neck Exam: normal inspection Respiratory Exam: normal breath sounds, lungs clear Cardiovascular Exam: regular rate/rhythm, normal heart sounds Gastrointestinal/Abdomen Exam: soft, normal bowel sounds Pelvic Exam: deferred Rectal Exam: deferred Back Exam: normal inspection Extremity Exam: normal inspection Skin Exam: normal color Final Diagnosis/Problem List - Final Discharge Diagnosis/Problem (1) Chest pain Current Visit: Yes Status: Acute Assessment & Plan: Initial cardiac workup negative; monitor clinically. Outpatient cardiology follow-up and stress test recommended. Continue PPI for possible GI contribution. Nitro PRN. Code(s): R07.9 - CHEST PAIN, UNSPECIFIED (2) Wheezing Current Visit: Yes Status: Acute Assessment & Plan: Outpatient pulmonary evaluation and PFTs recommended. Code(s): R06.2 - WHEEZING (3) Alcohol dependence Current Visit: Yes Status: Acute Assessment & Plan: Managed on CIWA protocol with PRN lorazepam; supportive vitamins given. Patient continues to drink daily, declined resources. Code(s): F10.20 - ALCOHOL DEPENDENCE, UNCOMPLICATED (4) Hiatal hernia Current Visit: Yes Status: Acute Assessment & Plan: Initiated PPI. Outpatient GI follow-up recommended. Code(s): K44.9 - DIAPHRAGMATIC HERNIA WITHOUT OBSTRUCTION OR GANGRENE (5) Obesity (BMI 30.0-34.9) Current Visit: Yes Status: Acute Assessment & Plan: Lifestyle modification advised. Code(s): E66.811 - OBESITY, CLASS 1 (6) Depression Current Visit: Yes Status: Acute Assessment & Plan: Not currently on medication; outpatient follow-up recommended Code(s): F32.A - DEPRESSION, UNSPECIFIED (7) Leukocytosis Current Visit: Yes Status: Acute Assessment & Plan: No clear source of infection; monitored clinically. May be secondary to amphetamine use Code(s): D72.829 - ELEVATED WHITE BLOOD CELL COUNT, UNSPECIFIED (8) Nausea & vomiting Current Visit: Yes Status: Acute Assessment & Plan: resolved Code(s): R11.2 - NAUSEA WITH VOMITING, UNSPECIFIED (9) Tobacco abuse Current Visit: Yes Status: Acute Assessment & Plan: Patient declined nicotine replacement therapy. Code(s): Z72.0 - TOBACCO USE (10) Amphetamine abuse Current Visit: Yes Status: Acute Assessment & Plan: Patient reports regular methamphetamine use; last use day prior to admission. Counseled on cessation; patient declined treatment resources. Monitor for cardiovascular complications. Code(s): F15.10 - OTHER STIMULANT ABUSE, UNCOMPLICATED (11) Hypokalemia Current Visit: Yes Status: Acute Assessment & Plan: Resolved Code(s): E87.6 - HYPOKALEMIA - Discharge Discharge Date: 07/03/25 Disposition: Home, Self-Care Condition: Stable Prescriptions: New Folic Acid 1 mg [Folate 1 mg] 1 mg PO DAILY 30 Days #30 tablet Atorvastatin Calcium [Lipitor 40Mg] 40 mg PO DAILY 30 Days #30 tablet PANTOPRAZOLE 40 mg Tablet [Protonix 40MG Tablet] 40 mg PO DAILY 30 Days #30 tablet Multivitamins,Therapeutic Tab* [Theragran Multivitamin] 1 tab PO QAM 30 Days #30 tablet Thiamine HCl 100 mg [Vitamin B-1 100 mg] 100 mg PO DAILY 30 Days #30 tablet Nitroglycerin 0.4 mg Tablet [Nitrostat 0.4 MG Tablet] 0.4 mg SL Q5MIN PRN MR X 3 PRN 30 Days #30 tab PRN Reason: Chest Pain Continue Albuterol Sulfate [Albuterol Sulfate Hfa] 2 inh PO Q6HPRN PRN PRN Reason: Shortness Of Breath Follow up with: ERA [place] [CONSULTING PHYSICIAN, CARDIOLOGY] - 1 Week DOCTOR,NO FAMILY [Primary Care Provider, UNKNOWN] Referral Note: need PCP set up
[2025-07-03 13:07] VITALS: BP 137/80; PULSE 99; TEMP 98.2; O2SAT 95
== END 2025-07-03 13:22 | disposition home or self-care (01) ==
LOC: ED 17:45 → MED SURG 22:47
PROVIDERS: ADMIT Hospitalist; ATTEND Hospitalist
DX: R07.9 Chest pain, unspecified (principal); R06.2 Wheezing; F10.20 Alcohol dependence, uncomplicated; K44.9 Diaphragmatic hernia without obstruction or gangrene; E66.811 Obesity, class 1; F32.A Depression, unspecified; D72.829 Elevated white blood cell count, unspecified; R11.2 Nausea with vomiting, unspecified; Z72.0 Tobacco use; F15.10 Other stimulant abuse, uncomplicated; E87.6 Hypokalemia; K21.9 Gastro-esophageal reflux disease without esophagitis; F10.220 Alcohol dependence with intoxication, uncomplicated; Z79.899 Other long term (current) drug therapy; Z85.71 Personal history of Hodgkin lymphoma
CPT/HCPCS: 36415; 71260; 74177; 80053; 80061; 80307; 81001; 82550; 83036; 83605; 83690; 83721; 83735; 83880; 84484; 85025; 85027; 85610; 85730; 93005; 93041; 93268; 94640; 94760; 99285; G0378; Q3014